=== PATIENT | female | born 1960 | race American Indian/Alaskan Native ===

== ENCOUNTER 2016-11-16 17:15 | Emergency (ER) | payer BC ==
[2016-11-16 19:16] LABS: Basophils % (Auto) 0.8 % (0.0-1.8); Eosinophils % (Auto) 2.3 % (0.0-4.3); Hematocrit 43.9 % (30.3-42.9); Hemoglobin 14.3 gm/dl (10.1-14.3); Mean Corpuscular HGB Conc 33 % (30-34); Mean Corpuscular Hemoglobin 27 pg (28-32); Mean Corpuscular Volume 83 fl (79-97); Platelet Count 313 K/mm3 (140-440); Red Blood Count 5.28 M/mm3 (3.65-5.03); Red Cell Distribution Width 13.5 % (13.2-15.2); White Blood Count 10.7 K/mm3 (4.5-11.0)
[2016-11-16 19:28] LABS: Anion Gap 20 mmol/L; BUN/Creatinine Ratio 18.33; Blood Urea Nitrogen 11 mg/dL (7-17); Calcium 9.9 mg/dL (8.4-10.2); Carbon Dioxide 25 mmol/L (22-30); Chloride 98.5 mmol/L (98-107); Glucose 93 mg/dL (65-100); Potassium 4.6 mmol/L (3.6-5.0); Sodium 139 mmol/L (137-145)
[2016-11-16 20:38] VITALS: BP 160/83
--- NOTE | 2016-11-16 21:48 | Emergency Department Report ---
ED Chest Pain HPI - General Chief Complaint: Weakness Stated Complaint: NUMBESS TO BACK/FATIGUE Time Seen by Provider: 11/16/16 21:34 Source: patient Mode of arrival: Ambulatory Limitations: No Limitations - History of Present Illness Initial Comments: Patient is a 56-year-old female with history of hypertension presenting today because of left-sided chest pain/heaviness going down to her left arm. Patient states that the pain started on Tuesday night/Tuesday morning. It was associated with some shortness of breath and nausea without vomiting. States that she sometimes gets chest pain but this is different. Has not seen her primary doctor about this and has not had any prior stress test or cardiac catheterization. She has a family history that is significant with her father dying at 62 of coronary artery disease and multiple uncles having of coronary artery disease with one having at the age of 49. She denies any fevers/chills, cough, or palpitations. Severity scale (0 -10): 4 - Related Data Home Medications Medication Instructions Recorded Confirmed Last Taken Lisinopril 10 mg PO DAILY 11/16/16 11/16/16 Unknown Allergies Allergy/AdvReac Type Severity Reaction Status Date / Time No Known Allergies Allergy Verified 11/16/16 18:38 ED Review of Systems ROS: Stated complaint: NUMBESS TO BACK/FATIGUE Other details as noted in HPI Comment: All other systems reviewed and negative Constitutional: denies: chills, fever Respiratory: denies: cough Cardiovascular: chest pain. denies: palpitations Gastrointestinal: nausea. denies: abdominal pain Skin: denies: rash Neurological: denies: headache ED Past Medical Hx - Past Medical History Hx Hypertension: Yes - Surgical History Additional Surgical History: partial hyst - Social History Smoking Status: Never Smoker Substance Use Type: None - Medications Home Medications: Home Medications Medication Instructions Recorded Confirmed Last Taken Type Lisinopril 10 mg PO DAILY 11/16/16 11/16/16 Unknown History ED Physical Exam - General Limitations: No Limitations General appearance: alert, in no apparent distress - Head Head exam: Present: atraumatic - Eye Eye exam: Present: normal appearance - ENT ENT exam: Present: normal exam - Respiratory Respiratory exam: Present: normal lung sounds bilaterally. Absent: respiratory distress, wheezes - GI/Abdominal GI/Abdominal exam: Present: soft. Absent: distended, tenderness - Extremities Exam Extremities exam: Present: normal inspection, other (radial pulse 2+) - Neurological Exam Neurological exam: Present: alert, oriented X3 - Psychiatric Psychiatric exam: Present: normal affect - Skin Skin exam: Present: intact, rash ED Course Vital Signs 11/16/16 11/16/16 18:29 20:37 Temperature 98.2 F Pulse Rate 68 74 Respiratory 16 16 Rate Blood Pressure 178/123 Blood Pressure 160/83 [Left] O2 Sat by Pulse 99 96 Oximetry ED Medical Decision Making - Lab Data Result diagrams: 11/16/16 18:56 11/16/16 18:56 - Medical Decision Making Labs preordered, cxr ordered labs unremarkable with negative troponin cxr shoesnt show any acute disease patient in no pain currently has a heart score of 2 (2 RF with FHx and HTN and age), i offered the patient inpatient workup vs outpatient evaluation by collar cutter. I explained the risk based on the heart score was .9-1.7% of adverse cardiac vents. Patient prefers outpatient evaluation. Recommended immediate return if chest pain or other symptoms to the ER. Critical care attestation.: If time is entered above; I have spent that time in minutes in the direct care of this critically ill patient, excluding procedure time. ED Disposition Clinical Impression: Chest pain Qualifiers: Chest pain type: unspecified Qualified Code(s): R07.9 - Chest pain, unspecified Disposition: DISCHARGED TO HOME OR SELFCARE Is pt being admited?: No Does the pt Need Aspirin: No Condition: Stable Instructions: Chest Pain (ED) Additional Instructions: Please follow up with the primary care physician in the next and a collar cutter in the next 2-3 days. Return to the ER if your symptoms significantly worsen or you develop new symptoms. Referrals: VICENTE CARBAJAL MD [Primary Care Provider] - 3-5 Days LEONIDES ZHU MD [Staff Physician] - 3-5 Days [facility] [Provider Group] - 3-5 Days Time of Disposition: 23:16
--- NOTE | 2016-11-17 07:30 | XRay Report ---
AP CHEST: HISTORY: chest pain AP view of the chest demonstrates a normal mediastinal and cardiac contour with clear lungs and normal bony and soft tissue structures. IMPRESSION: Unremarkable AP chest.
== END 2016-11-16 23:38 | disposition home or self-care (01) ==
LOC: ED 17:15
DX: R07.9 Chest pain, unspecified (principal); I10 Essential (primary) hypertension
CPT/HCPCS: 36415; 71010; 80048; 84484; 85025; 93005; 93010